=== PATIENT | female | born 1975 | race Caucasian/White ===

== ENCOUNTER 2016-06-29 11:37 | Emergency (ER) | payer BC ==
[~2016-06-29] VITALS: Ht 177.8 cm; Wt 59.0 kg
[2016-06-29] MEDS ORDERED: ONDANSETRON 4 MG/2 ML VIAL IV ONE (12:15)
[2016-06-29] MEDS ORDERED: IV NORMAL SALINE 1000 ML BAG IV ONE (12:15)
[2016-06-29] MEDS ORDERED: ONDANSETRON 4 MG/2 ML VIAL ONE (12:18)
[2016-06-29 12:19] LABS: *BILIRUBIN,URIN NEGATIVE (NEGATIVE); *BLOOD, URINE NEGATIVE (NEGATIVE); *CLARITY,URINE CLOUDY (CLEAR); *COLOR,URINE YELLOW (YELLOW); *KETONES,URINE NEGATIVE (NEGATIVE); *PROTEIN,URINE 1+ (NEGATIVE); *UROBILINOGEN,URINE 0.2 E.U./dl (NORMAL); LEUKOCYTE ESTERASE ,URINE NEGATIVE (NEGATIVE); NITRITE, URINE NEGATIVE (NEGATIVE); UGLUCOSE NEGATIVE (NEGATIVE)
[2016-06-29 12:22] LABS: BASOPHILS % (AUTO) 0.5 % (0.0-2.0); EOSINOPHILS # (AUTO) 0.4 K/uL (0.0-0.7); EOSINOPHILS % (AUTO) 8.9 % (0.0-7.0); HEMATOCRIT 37.1 % (37-47); HEMOGLOBIN 12.6 G/DL (12.0-16.0); LYMPHOCYTES # (AUTO) 2.4 K/uL (20.0-40.0); LYMPHOCYTES % (AUTO) 49.6 % (20.5-51.5); MEAN CORPUSCULAR HEMOGLOBIN 34.8 UUG (27.0-31.0); MEAN CORPUSCULAR HGB CONC 34 g/dL (32.0-37.0); MEAN CORPUSCULAR VOLUME 103.1 FL (81.0-99.0); MONOCYTES # (AUTO) 0.4 K/uL (2.0-10.0); MONOCYTES % (AUTO) 7.9 % (0.0-11.0); NEUTROPHILS # (AUTO) 1.6 K/uL (1.8-8.9); NEUTROPHILS % (AUTO) 33.1 % (38.5-71.5); PLATELET COUNT (AUTO) 261 K/UL (150-450); RED CELL DISTRIBUTION WIDTH 16.2 % (11.5-14.5); WHITE BLOOD COUNT (AUTO) 4.8 K/UL (4.0-11.2)
[2016-06-29 12:24] LABS: *URINE HCG, QUAL NEGATIVE (NEGATIVE)
[2016-06-29 12:32] LABS: *AMPHETAMINE, URINE NEGATIVE (NEGATIVE); *BARBITURATE, URINE NEGATIVE (NEGATIVE); *CANNABINOID, URINE POSITIVE (NEGATIVE); *COCCAINE, URINE NEGATIVE (NEGATIVE); *OPIATE, URINE NEGATIVE (NEGATIVE); *PHENCYCLIDINE SCREEN,URINE NEGATIVE (NEGATIVE)
--- NOTE | 2016-06-29 12:35 | NUR ---
PATIENT OUT OF UNIT FOR CT SCAN
[2016-06-29 12:37] LABS: BACTERIA,URINE MODERATE /HPF (NONE SEEN); MUCUS,URINE FEW /LPF (0-FEW); RBC,URINE 0-3 /HPF (0-3); SQUAMOUS EPITHELIAL CELL,UR MANY /HPF (NONE SEEN); WBC,URINE 0-3 /HPF (0-3)
[2016-06-29 12:41] LABS: ALANINE AMINOTRANSFERASE 36 U/L (14-59); ALBUMIN 4.1 g/dL (3.4-5.0); ALKALINE PHOSPHATASE 59 U/L (50-136); ASPARTATE AMINOTRANSFERASE 29 U/L (15-37); BILIRUBIN,DIRECT 0.1 mg/dL (0.0-0.2); BILIRUBIN,TOTAL 0.4 mg/dL (0.2-1.0); CALCIUM 8.8 mg/dL (8.5-10.1); CARBON DIOXIDE 27 mmol/L (21-32); CHLORIDE 103 mmol/L (98-107); GFR 42 mL/min (>60); GLUCOSE 99 mg/dL (74-106); POTASSIUM 4.2 mmol/L (3.5-5.1); SODIUM SERUM 143 mmol/L (136-145); TOTAL PROTEIN, SERUM 7.8 g/dL (6.4-8.2); UREA NITROGEN, BLOOD 17 mg/dL (7-18)
[2016-06-29 12:42] LABS: CREATININE 1.4 mg/dL (0.6-1.3)
[2016-06-29 12:45] LABS: ETHANOL 27 MG/DL (0-0)
--- NOTE | 2016-06-29 12:45 | NUR ---
PATIENT BACK FROM CT SCAN WITH NO DISTRESS NOTED
[2016-06-29 13:15] LABS: ACETAMINOPHEN < 2.0 ug/mL (10-30)
[2016-06-29] MEDS ORDERED: CHLORDIAZEPOXIDE HCL 25 MG CAPSULE PO ONE (13:45)
[2016-06-29] MEDS ORDERED: CHLORDIAZEPOXIDE HCL 25 MG CAPSULE ONE (14:43)
--- NOTE | 2016-06-29 16:36 | NUR ---
IV removed. Catheter intact and site benign. Pressure and 4x4 gauze applied to site. No bleeding noted.
[2016-06-29 16:42] VITALS: BP 138/82
== END 2016-06-29 16:42 | disposition home or self-care (01) ==
LOC: ER 11:37
DX: F10.20 Alcohol dependence, uncomplicated (principal); R07.9 Chest pain, unspecified; R51 Headache; Z88.2 Allergy status to sulfonamides; Z88.8 Allergy status to other drugs, medicaments and biological substances
CPT/HCPCS: 36415; 70030-TC; 70450; 80307; 84703; 85025; 85730; 93005; A4663; G0480-TC; G6040-TC; J2405; J7030

== ENCOUNTER 2016-07-22 14:15 | Emergency (ER) | payer BC ==
[~2016-07-22] VITALS: Ht 180.3 cm; Wt 58.5 kg
[2016-07-22] MEDS ORDERED: ALPR0.5T8 PO (14:32)
[2016-07-22] MEDS ORDERED: LEVE500T9 PO (14:32)
--- NOTE | 2016-07-22 14:58 | NUR ---
PT IS IN ROOM #2B .DR MERAZ EVALUATED THE PT.
[2016-07-22] MEDS ORDERED: IV NS 1000 ML 1,000 ML IV ONE (15:00)
[2016-07-22 15:12] LABS: BASOPHILS % (AUTO) 0.6 % (0.0-2.0); EOSINOPHILS # (AUTO) 0.2 K/uL (0.0-0.7); EOSINOPHILS % (AUTO) 3.1 % (0.0-7.0); HEMATOCRIT 33.4 % (37-47); HEMOGLOBIN 11.4 G/DL (12.0-16.0); LYMPHOCYTES # (AUTO) 1.4 K/UL (0.8-4.8); LYMPHOCYTES % (AUTO) 27.5 % (20.5-51.5); MEAN CORPUSCULAR HEMOGLOBIN 36.7 UUG (27.0-31.0); MEAN CORPUSCULAR HGB CONC 34 g/dL (32.0-37.0); MEAN CORPUSCULAR VOLUME 107.5 FL (81.0-99.0); MONOCYTES # (AUTO) 0.6 K/UL (0.1-1.30); MONOCYTES % (AUTO) 11.6 % (0.0-11.0); NEUTROPHILS % (AUTO) 57.2 % (38.5-71.5); PLATELET COUNT (AUTO) 247 K/UL (150-450); WHITE BLOOD COUNT (AUTO) 5.2 K/UL (4.0-11.2)
[2016-07-22 15:19] LABS: CREATININE 0.6 mg/dL (0.6-1.3); POTASSIUM 3.8 mmol/L (3.5-5.1)
[2016-07-22 15:31] LABS: TOTAL PROTEIN, SERUM 7.3 g/dL (6.4-8.2)
[2016-07-22 15:34] LABS: *BILIRUBIN,URIN NEGATIVE (NEGATIVE); *BLOOD, URINE 2+ (NEGATIVE); *CLARITY,URINE CLEAR (CLEAR); *COLOR,URINE YELLOW (YELLOW); *KETONES,URINE NEGATIVE (NEGATIVE); *PROTEIN,URINE NEGATIVE (NEGATIVE); *UROBILINOGEN,URINE 0.2 E.U./dl (NORMAL); LEUKOCYTE ESTERASE ,URINE NEGATIVE (NEGATIVE); NITRITE, URINE NEGATIVE (NEGATIVE); PH,URINE 6.5 (5.0-8.0); UGLUCOSE NEGATIVE (NEGATIVE)
[2016-07-22 15:35] LABS: *URINE HCG, QUAL NEGATIVE (NEGATIVE)
[2016-07-22 15:51] LABS: BACTERIA,URINE NONE SEEN /HPF (NONE SEEN); SQUAMOUS EPITHELIAL CELL,UR FEW /HPF (NONE SEEN); WBC,URINE 0-3 /HPF (0-3)
[2016-07-22 15:52] LABS: THYROID STIMULATING HORMONE 0.891 mIU/mL (0.358-3.740)
[2016-07-22 18:20] VITALS: BP 131/78
== END 2016-07-22 18:20 | disposition home or self-care (01) ==
LOC: ER 14:15
DX: S05.12XA Contusion of eyeball and orbital tissues, left eye, initial encounter (principal); S40.012A Contusion of left shoulder, initial encounter; S20.211A Contusion of right front wall of thorax, initial encounter; F10.20 Alcohol dependence, uncomplicated; Z88.2 Allergy status to sulfonamides; Z88.8 Allergy status to other drugs, medicaments and biological substances; W18.30XA Fall on same level, unspecified, initial encounter; Y93.89 Activity, other specified; Y99.8 Other external cause status; Y92.89 Other specified places as the place of occurrence of the external cause
CPT/HCPCS: 36415; 70030-TC; 70450; 71010; 73060; 73502; 83690; 84443; 84703; 85025; 85610; 93005; A4663; G6040-TC; J7030